=== PATIENT | male | born 1940 | race Caucasian/White ===

== ENCOUNTER → 2017-03-16 | Outpatient (CLI) | payer OTHER | END | disposition home or self-care (01) | LOC: RAD 10:06 | DX: R50.9 Fever, unspecified (principal); J45.998 Other asthma ==

== ENCOUNTER 2017-08-01 08:51 | Outpatient (CLI) | payer OTHER | END 2017-08-01 09:03 | disposition home or self-care (01) | LOC: RAD 08:51 | DX: M19.031 Primary osteoarthritis, right wrist (principal); M18.11 Unilateral primary osteoarthritis of first carpometacarpal joint, right hand ==

== ENCOUNTER 2017-10-03 14:09 | Outpatient (CLI) | payer OTHER | END 2017-10-03 14:17 | disposition home or self-care (01) | LOC: MRI 14:09 | DX: G95.29 Other cord compression (principal) | CPT/HCPCS: 72141 ==